=== PATIENT | male | born 1985 | race Two or more races ===

== ENCOUNTER → 2025-04-12 | Outpatient (CLI) | payer MEDICAID, SELFPAY ==
--- NOTE | 2025-04-12 13:26 | XR_ITS ---
EXAMINATION: Cervical spine, 5 views Technique: Cervical spine AP, AP odontoid, lateral, bilateral obliques, 5 views Exam date and time: April 12, 2025 1340 hours INDICATIONS: Neck pain beginning 3 weeks ago. FINDINGS: Straightening normal cervical lordosis. Early degenerative disc disease C5-C6, C6-C7 No significant neural foraminal stenosis No fracture Intact odontoid IMPRESSION: Early degenerative disc disease C5-C6 and C6-C7
== END | disposition home or self-care (01) ==
LOC: CDIM 13:18
PROVIDERS: PCP Nurse Practitioner Family; Referring Provider Nurse Practitioner Family; Visit Provider Nurse Practitioner Family
DX: M50.322 Other cervical disc degeneration at C5-C6 level (principal)
CPT/HCPCS: 72050

== ENCOUNTER 2025-04-19 22:55 | Emergency (ER) | payer MEDICAID, SELFPAY ==
[2025-04-19 23:03] VITALS: BP 128/89; PULSE 104; RESP 18; TEMP 36.8; O2SAT 96
--- NOTE | 2025-04-19 23:11 | EDNOTE_ITS ---
ED Abdominal Pain RME/HPI General Chief Complaint: Abdominal Pain Stated complaint: EPIGASTRIC PAIN, N/V Time seen by provider: 04/19/25 23:09 Arrival date/time: 04/19/25 22:55 RME / HPI RME / HPI narrative: See [facility] for Dr. Curry's HPI documentation. Related Data Previous Rx's ?Medication ?Instructions ?Recorded amoxicillin 875 mg-potassium 1 tab PO BID #14 tabs 03/21 clavulanate 125 mg tablet (Augmentin) fexofenadine 60 mg-pseudoephedrine 1 tab PO Q12H PRN n zena congestion 02/05/21 ER 120 mg tablet,ext.release,12 hr #14 tabs (Irasema-D 12 Hour) acetaminophen 300 mg-codeine 30 mg 2 tab PO Q8H PRN pa in #20 tabs 04/20/25 tablet famotidine 40 mg tablet 40 mg PO .bedtime #30 tabs 0 04/20/25 lidocaine 5 % topical patch 1 patch topical QDAY PRN p ain #30 04/20/25 (Lidoderm) ea omeprazole 40 mg capsule,delayed 40 mg PO QDAY #30 cap s 04/20/25 release ondansetron 4 mg disintegrating 4 mg PO TID PRN nausea and 04/20/25 tablet vomiting 30 days #10 tabs Allergies Allergy/AdvReac Type Severity Reaction Status Date / Time No Known Allergies Allergy Verified 04/19/25 22:56 Review of Systems Review of Systems Systems Reviewed: All systems reviewed, normal except as documented Past Medical History Past Medical History CARDIAC: Negative Congestive Heart Failure RESPIRATORY: Positive Asthma; Negative Chronic Obstructive Pulmonary Disease (COPD) GENITOURINARY: Negative Renal Disease ENDOCRINE: Negative Diabetes Mellitus Type 1 or Diabetes Mellitus Type 2 Social History SMOKING STATUS: Never smoker SUBSTANCE USE: does not use ED Exam Narrative Physical exam: See [facility] for Dr. Curry's physical exam documentation. Course Quality Measures none Orders Category Date Time Status CT abdomen pelvis wo con Stat Exams 04/19/25 23:[address] cervical spine wo con Stat Exams 04/19/25 23:[address] head/brain wo con Stat Exams 04/19/25 23:16 Taken US gall bladder Stat Exams 04/19/25 23:16 Completed Amylase Stat Lab 04/19/25 23:23 Completed Bilirubin,Direct Stat Lab 04/19/25 23:23 Completed CBC Stat Lab 04/19/25 23:23 Completed CMP [Comprehensive Metabolic Panel] Stat Lab 04/19/25 23:23 Completed Magnesium Stat Lab 04/19/25 23:23 Completed ACETAMINOPHEN w/COD 300-30 [Tylenol w/Cod #3] Med 04/20/25 01:10 Discontinued 2 tab PO X1 ONE Famotidine [Pepcid] Med 04/19/25 23:15 Discontinued 40 mg PO X1 ONE Lidocaine 5% Patch Med 04/20/25 01:10 Discontinued 1 patch TOP X1 ONE Ondansetron Odt [Zofran Odt] Med 04/19/25 23:15 Discontinued 4 mg PO X1 ONE Pantoprazole [Protonix] Med 04/19/25 23:15 Discontinued 40 mg PO X1 ONE Vital Signs Vital signs: Vital Signs Temperature 98.3 F 04/19/25 23:03 Pulse Rate 104 H 04/19/25 23:03 Respiratory Rate 18 04/19/25 23:03 Blood Pressure 128/89 H 04/19/25 23:03 Pulse Oximetry (%) 96 04/19/25 23:03 Oxygen Delivery Method Room Air 04/19/25 23:03 Abdominal Pain MDM MDM Narrative MDM Narrative:: This section includes all my notes and documentations, including HPI, PE, and ED course. Gurjit Curry MD HPI: 40yo male here with epigastric pain and vomiting for the last couple days. Patient also complains of headache and right-arm weakness and neck pain for the last 3 weeks. No speech or visual impairment. No numbness or tingling. No other complaints reported. ROS: All negative except as documented in HPI. Physical Exam: General: Alert and oriented. No acute distress when remaining still. Eyes: Conjunctivae and lids clear. PERRL. EOMI. ENT: No nasal congestion. Neck: Supple. No carotid bruit. No JVD. Heart: RRR. Lungs: No respiratory distress. Good air movement. No rhonchi, wheezing, rales. Abdomen: Soft with mild epigastric tenderness. Skin: Warm and dry. Neuro: Alert and oriented X 3. Cranial nerves II to XII grossly normal. No peripheral motor deficits. I reviewed all diagnostic test results. My review of the gallbladder US report is NAD. My review of the CT head report is NAD. My review of the CT cervical spine report is NAD. My review of the CT chest abdomen pelvis report is NAD. Blood tests unremarkable. At this point, diagnoses include: Stomach ulcer Cervical radiculopathy Treatment here included: Two Tylenol #3 Pepcid 40 mg orally Lidocaine patch Zofran ODT 4 mg Protonix 40 mg orally Significant improvement noted. Recommended more outpatient management. Based on my best medical judgment, made decision no further evaluation or treatment indicated at this time. Patient understands and agrees to the discharge instructions customized and printed, see below. Discharge instructions from Dr. Curry: ?After evaluation, your abdominal pain is due to stomach ulcer (see attached handout). ?To help heal the ulcer, take Omeprazole 40 mg every morning and Famotidine 40 mg at bedtime for a week then as needed. ?Zofran for nausea/vomiting. Clear liquid diet for 24 hours. Then slowly advance diet as tolerated. ?Avoid food and beverages that can trigger and worsen ulcers. See attached handout. --Your neck pain going into the right arm is probably due to pinched nerve. See attached handout. --Lidocaine patches and Tylenol with codeine as needed. ?See a private doctor outside the ER on 04/22/2025 for recheck and further care. Ask to review all test results and official radiology reports, to make sure you receive all necessary follow-ups and monitoring. To make sure there is no serious intra-abdominal condition, ask for help with more investigation not available here in the ER. Such as EGD or scoping the stomach, colonoscopy or scoping the colon, and referral to see power crane operator. To confirm the pinched nerve in the neck, ask for help with MRI imaging of the neck. ?Seek immediate medical care with worsening or with any concerns. Gurjit Curry MD Patient data External records reviewed:: [facility] previous records Clinical information provided by:: patient Social determinants that could affect healthcare access:: none Patient has the following chronic illnesses:: asthma How is presenting disease/condition affected by chronic disease/condition?: uneffected by Evaluation data The following diagnostics were reviewed and interpreted by me:: lab results and radiology exam(s) Lab and/or radiology exams considered but not ordered:: none Interpretation Summary: I reviewed all diagnostic test results. My review of the gallbladder US report is NAD. My review of the CT head report is NAD. My review of the CT cervical spine report is NAD. My review of the CT chest abdomen pelvis report is NAD. Blood tests unremarkable. Medications / Prescriptions Medications or Prescriptions considered but not ordered:: none Medication administrations:: Medication Administration History Discontinued Medications Acetaminophen/Codeine Phosphate (Acetaminophen W/Cod 300-30 Tablet) 2 tab PO X1 ONE Stop: 04/20/25 01:11 Last Admin: 04/20/25 01:19 Dose: 2 tab Documented By: HO Famotidine (Famotidine 20 Mg Tablet) 40 mg PO X1 ONE Stop: 04/19/25 23:16 Last Admin: 04/19/25 23:40 Dose: 40 mg Documented By: ABNER Lidocaine (Lidocaine 5% 1 Patch) 1 patch TOP X1 ONE Stop: 04/20/25 01:11 Last Admin: 04/20/25 01:20 Dose: 1 patch Documented By: HO Comments: MID UPPER BACK AREA Ondansetron HCl (Ondansetron Odt 4 Mg Tabrap) 4 mg PO X1 ONE; Protocol Stop: 04/19/25 23:16 Last Admin: 04/19/25 23:44 Dose: 4 mg Documented By: ABNER Pantoprazole Sodium (Pantoprazole 40 Mg Tablet) 40 mg PO X1 ONE Stop: 04/19/25 23:16 Last Admin: 04/19/25 23:40 Dose: 40 mg Documented By: ABNER Treatment here included: Two Tylenol #3 Pepcid 40 mg orally Lidocaine patch Zofran ODT 4 mg Protonix 40 mg orally Consultations Consultation(s) initiated? (list below): No Diagnosis Differential diagnosis abdominal pain: acute appendicitis, calculus of kidney, constipation, diverticulitis, gastroenteritis, pancreatitis and small bowel obstruction Most likely diagnosis given after review of the tests above:: Stomach ulcer Cervical radiculopathy Admission Indicated Admission indicated?: not indicated Explain why admission is indicated or not indicated:: With significant improvement and no condition needing emergent intervention, there was no indication for admission. Admission Request Was there a request for admission?: No Disposition Plan Disposition Plan: Discharge Discharge Attestation Discharge Attestation: The patient and all family members were given an opportunity to ask questions and understood the discharge instructions. Discharge instructions specifically effects, indications for sooner follow up or return to the emergency department, and the expected course of current diagnosis. Patient condition: Stable Discharge Plan Plan Patient Disposition: HOME (Self Care) Prescriptions/Referrals Prescriptions/Med Rec: New famotidine 40 mg tablet 40 mg PO .bedtime Qty: 30 0RF acetaminophen-codeine 300-30 mg tablet 2 tab PO Q8H MDD 6 PRN (Reason: pain) Qty: 20 0RF omeprazole 40 mg capsule,delayed release(DR/EC) 40 mg PO QDAY Qty: 30 0RF lidocaine [Lidoderm] 5 % adhesive patch,medicated 1 patch topical QDAY PRN (Reason: pain) Qty: 30 0RF Rx Instructions: leave on most painful area for up to 12 hrs ondansetron 4 mg tablet,disintegrating 4 mg PO TID PRN (Reason: nausea and vomiting) 30 Days Qty: 10 0RF No Action amoxicillin-pot clavulanate [Augmentin] 875-125 mg tablet 1 tab PO BID Qty: 14 0RF fexofenadine-pseudoephedrine [Irasema-D 12 Hour] 60-120 mg tablet extended release 12 hr 1 tab PO Q12H PRN (Reason: nasal congestion) Qty: 14 0RF Referrals: Herve Mar MD [Primary Care Provider, Pediatrics] - In 1 week Problem List Clinical Impression: Stomach ulcer, Neck pain Patient/Caregiver Discharge Instructions Discharge Activity: activity as tolerated Education Materials: ED Radiculopathy, Cervical, ED PUD Additional Instructions: Discharge instructions from Dr. Curry: ?After evaluation, your abdominal pain is due to stomach ulcer (see attached handout).? ?To help heal the ulcer, take Omeprazole 40 mg every morning and Famotidine 40 mg at bedtime for a week then as needed. ?Zofran for nausea/vomiting.? Clear liquid diet for 24 hours.? Then slowly advance diet as tolerated. ?Avoid food and beverages that can trigger and worsen ulcers.? See attached handout. --Your neck pain going into the right arm is probably due to pinched nerve. See attached handout. --Lidocaine patches and Tylenol with codeine as needed. ?See a private doctor outside the ER on 04/22/2025 for recheck and further care. Ask to review all test results and official radiology reports, to make sure you receive all necessary follow-ups and monitoring. To make sure there is no serious intra-abdominal condition, ask for help with more investigation not available here in the ER.? Such as EGD or scoping the stomach, colonoscopy or scoping the colon, and referral to see power crane operator. To confirm the pinched nerve in the neck, ask for help with MRI imaging of the neck. ?Seek immediate medical care with worsening or with any concerns. Instrucciones de linwood del Dr. Curry: ?Despu?s de la evaluaci?n, gill dolor abdominal se debe a ramone ?lcera estomacal (misti folleto adjunto). ?Para ayudar a cicatrizar la ?lcera, tome omeprazol 40 mg todas las ma?anas y famotidina 40 mg antes de acostarse matteo ramone semana y, posteriormente, seg?n sea necesario. ?Zofran para las n?useas y los v?mitos. Dieta l?quida matteo 24 horas. Luego, aumente gradualmente la dieta seg?n la tolerancia. ?Evite alimentos y bebidas que puedan desencadenar y empeorar las ?lceras. Misti folleto adjunto. ?Gill dolor de alexander que se extiende hasta el brazo derecho probablemente se deba a un nervio pinzado. Misti folleto adjunto. ?Parches de lidoca?na y Tylenol con code?na seg?n sea necesario. ?Consulte con un m?dico privado fuera de urgencias el 22/04/2025 para ramone nueva revisi?n y atenci?n adicional. Solicite la revisi?n de todos los resultados de las pruebas y los informes radiol?gicos oficiales para asegurarse de recibir todos los seguimientos y la monitorizaci?n necesarios. Para asegurarse de que no haya ramone afecci?n intraabdominal grave, solicite ayuda con otras pruebas que no est?n disponibles en urgencias, theodora ramone endoscopia estomacal (EGD) o ramone endoscopia g?strica, ramone colonoscopia o ramone endoscopia de colon, y ramone derivaci?n a un gastroenter?logo. Para confirmar el nervio pinzado en el alexander, solicite ayuda con ramone resonancia magn?niranjan del alexander. ?Busque atenci?n m?dica inmediata si el paciente empeora o tiene alguna inquietud. Print Language: Icelandic Stand Alone Forms: [facility] Award Info., Patient Portal Info Letter
--- NOTE | 2025-04-19 23:16 | XR_ITS ---
Examination: CT brain head without contrast. 2-D sagittal coronal reconstructions Date and time of exam:April 20, 2025 0010 hrs. Indications: Headaches beginning 3 weeks ago CTDI: vol (mGy):51.1 DLP: (mGycm):1076 Technique: Multiple CT axial sections of the brain have been obtained, 5 mm slice thickness. Contrast has not been administered. 2-D sagittal, coronal reconstructions have been obtained Low dose protocols were performed. One or more of the following dose reduction techniques were used; automated exposure control, adjustment of the mA and/or KV according to patient size, use of iterative reconstruction technique. Findings: No significant ventricular enlargement. Intra-axial or extra-axial hemorrhage density is not seen. No mass effect or midline shift Basal cisterns are not remarkable. Fourth ventricle is midline. Cranial vault intact. Impression: Negative for acute hemorrhage, mass effect or midline shift Advise clinical correlation follow-up accordingly
--- NOTE | 2025-04-19 23:16 | XR_ITS ---
Examination: Abdomen sonogram, Limited Date and time of exam: April 19, 2025 11:12 PM Indications: Vomiting epigastric pain today Technique: Real-time mccormick scale transabdominal sonographic images of the upper abdomen obtained. Findings: Contracted gallbladder no gallstones Common bile duct 0.3 cm Pancreatic head 3.9 cm Liver 17.5 cm no liver lesions lobular contour Normal hepatopedal portal venous flow Patent IVC Impression: Negative for cholelithiasis, negative for cholecystitis
--- NOTE | 2025-04-19 23:16 | XR_ITS ---
Examination: CT abdomen and pelvis without contrast. Coronal 3-D reconstructions. Sagittal 2-D reconstructions. Date and time of exam:April 20, 2025, 0014 hrs. Indications: Abdominal pain epigastric pain nausea vomiting beginning 2 days ago CTDI: vol (mGy): 17.21 DLP: (mGycm): 1153 Technique: Axial images of the abdomen have been obtained, 3 mm slice thickness Intravenous contrast material has not been administered. Low dose protocols were performed. One or more of the following dose reduction techniques were used; automated exposure control, adjustment of the mA and/or KV according to patient size, use of iterative reconstruction technique. Findings: No focal liver or splenic lesions No gallstones No pancreatic or adrenal mass No renal or ureteral calculi, no hydronephrosis Normal appendix Small lymph nodes and mild edema in the mesentery No bowel obstruction Prostate is normal in size Urinary bladder intact Impression: Normal appendix Suspicious for mesenteric adenitis
--- NOTE | 2025-04-19 23:16 | XR_ITS ---
Examination: CT cervical spine without contrast 2-D sagittal reconstructions 2-D coronal reconstructions 3-D reconstructions. Exam date and time:April 20, 2025, 0010 hrs. Indications: Neck pain radiating to the right arm beginning one week ago. CTDI:vol (mGy) 16.46 DLP: (mGycm) 430 Technique: Multiple 2 mm axial sections of the cervical spine have been obtained. The coronal and sagittal reconstructions have been obtained. 3-D reconstructions have been obtained. Low dose protocols were performed. One or more of the following dose reduction techniques were used; automated exposure control, adjustment of the mA and/or KV according to patient size, use of iterative reconstruction technique. Findings: Axial sections demonstrate intact base of the skull. C1 exhibit satisfactory relationship to the odontoid. No acute cervical vertebral body fracture seen. Alignment posterior spinous processes satisfactory. Impression: No acute cervical fracture. Early degenerative disc disease C5-C6, as clinically warranted, consider MRI cervical spine without contrast follow-up to best assess for acquired soft tissue spinal stenosis
[2025-04-19 23:34] LABS: Basophils # (Auto) 0.0 Thou/mm3 (0.0-0.2); Basophils % (Auto) 0 % (0-2.5); Eosinophils # (Auto) 0.3 Thou/mm3 (0.0-0.5); Eosinophils % (Auto) 2 % (0-10); Hematocrit 45.3 % (41.0-53.0); Hemoglobin 15.5 g/dL (13.5-16.0); Immature Granulocytes Auto 0.05 Thou/mm3 (0.00-0.00); Lymphocytes # (Auto) 3.5 Thou/mm3 (1.0-4.8); Lymphocytes % (Auto) 24 % (10-50); Mean Corpuscular HGB Conc 34.2 g/dl (31.0-37.0); Mean Corpuscular Hemoglobin 30.3 pg (25.0-35.0); Mean Corpuscular Volume 89 fL (80-100); Monocytes # (Auto) 1.3 Thou/mm3 (0.0-0.8); Monocytes % (Auto) 9 % (0-12); Neutrophils # (Auto) 9.4 Thou/mm3 (1.8-7.7); Neutrophils % (Auto) 65 % (37-80); Nucleated Red Blood Cell # 0.00 Thou/mm3 (0.00-0.00); Nucleated Red Blood Cell % 0 /100 WBC (0); Platelet Count 366 Thou/mm3 (140-440); RDW Standard Deviation 41.1 fL (35.1-43.9); Red Blood Count 5.12 Miln/mm3 (4.50-5.90); White Blood Count 14.5 Thou/mm3 (3.8-10.6)
[2025-04-19] MEDS: PANTOPRAZOLE 40 MG TABLET PO (23:40)
[2025-04-19] MEDS: FAMOTIDINE 20 MG TABLET 40 MG PO (23:40)
[2025-04-19] MEDS: ONDANSETRON ODT 4 MG TABRAP PO (23:44)
[2025-04-19 23:58] LABS: Alanine Aminotransferase 29 U/L (10-49); Albumin, Serum 4.7 gm/dL (3.5-5.0); Albumin/Globulin Ratio 1.7 (1.2-2.2); Alkaline Phosphatase 82 U/L (46-116); Amylase 83 U/L (30-118); Anion Gap 11 (7-16); Aspartate Amino Transferase 24 U/L (0-34); BUN/Creatinine Ratio 8 Ratio (12-20); Bilirubin,Direct < 0.1 mg/dL (0.0-0.3); Bilirubin,Total 0.3 mg/dL (0.3-1.2); Blood Urea Nitrogen 12 mg/dL (9-23); Calcium 10.0 mg/dL (8.3-10.6); Calcium (Corrected) 10.0 mg/dL (8.5-10.1); Carbon Dioxide 22.6 mMol/L (20.0-31.0); Chloride 106 mMol/L (98-107); Creatinine (Component) 1.5 mg/dL (0.6-1.3); Globulin 2.8 gm/dL (2.3-3.5); Glucose 124 mg/dL (74-106); Magnesium 2.0 mg/dL (1.6-2.6); Osmolality,Calculated 280 (275-295); Potassium 3.9 mMol/L (3.4-5.1); Sodium 140 mMol/L (136-145); Total Protein 7.5 gm/dL (5.7-8.2); eGFR > 60 See Note
--- NOTE | 2025-04-20 01:16 | PRELIM_ITS ---
CT scan of the head without intravenous contrast (axial sections with sagittal and coronal reformats). April 20, 2025 0009 hours Clinical History: Headache Comparison: None available at the time of this report. Findings: No evidence of intracranial hemorrhage, mass effect or midline shift. The ventricles and CSF spaces are unremarkable. The calvarium is unremarkable. The mastoid air cells and the visualized paranasal sinuses are clear. Impression: No evidence of intracranial hemorrhage, mass effect or midline shift. Report Electronically Signed By: Eran Palacio 04/20/2025 1:15:48 AM [EST]
--- NOTE | 2025-04-20 01:17 | PRELIM_ITS ---
CT scan of the cervical spine without intravenous contrast (axial sections with sagittal and coronal reformats) April 20, 2025 0011 hours Clinical History: Neck pain radiating into right arm. Comparison: None available at the time of this report. Findings: There is no fracture or subluxation. The prevertebral soft tissues are unremarkable. Loss of the physiologic cervical lordosis. Impression: No evidence of fracture or subluxation. Report Electronically Signed By: Eran Palacio 04/20/2025 1:16:58 AM [EST]
[2025-04-20] MEDS: ACETAMINOPHEN w/COD 300-30 TABLET 2 TAB PO (01:19)
[2025-04-20] MEDS: LIDOCAINE 5% 1 PATCH TOP (01:20)
--- NOTE | 2025-04-20 01:21 | PRELIM_ITS ---
CT scan of the abdomen and pelvis without intravenous contrast (axial sections with sagittal and coronal reformats) April 20, 2025 0012 hours Clinical History: Abdominal pain. Comparison: None available at the time of this report. Findings: The lung bases are clear. The liver, gallbladder, pancreas, spleen, kidneys and adrenals are unremarkable on this noncontrast study. No evidence of bowel obstruction. The appendix is within normal limits. Mild mesenteric fat stranding and prominent mesenteric lymph nodes. The urinary bladder is unremarkable. There is no free fluid or free air. The osseous structures are unremarkable. Impression: Mild mesenteric fat stranding and prominent mesenteric lymph nodes, consider mesenteric lymphadenitis in the differential diagnosis. Report Electronically Signed By: Eran Palacio 04/20/2025 1:21:27 AM [EST]
[2025-04-20 01:45] VITALS: RESP 16
== END 2025-04-20 01:45 | disposition home or self-care (01) ==
PROVIDERS: Emergency Provider Emergency Medicine; PCP Pediatrics
DX: K25.9 Gastric ulcer, unspecified as acute or chronic, without hemorrhage or perforation (principal); M54.2 Cervicalgia; R51.9 Headache, unspecified
CPT/HCPCS: 36415; 70450; 72125; 74176; 76705; 80053; 82150; 82248; 83735; 85025; 99284; J3490; Q0162; A9270